=== PATIENT | male | born 1980 | race Caucasian/White ===

== ENCOUNTER 2019-06-15 14:11 | Emergency (ER) | payer SELFPAY ==
[2019-06-15] MEDS ORDERED: KETOROLAC TROMETHAMINE 30MG/ML ONE ×2 (14:49→17:31)
[2019-06-15] MEDS ORDERED: SODIUM CHLORIDE 0.9% 1000ML 1,000 ML IV ONE (14:50)
[2019-06-15 15:00] LABS: BASOPHILS % (AUTO) 0.4 % (0.0-5.0); EOSINOPHILS % (AUTO) 0.4 % (0.0-8.0); HEMATOCRIT 47.1 % (42-54); LYMPHOCYTES % (AUTO) 17.6 % (21.0-51.0); MEAN CORPUSCULAR HEMOGLOBIN 29.1 pg (27.0-33.0); MEAN CORPUSCULAR HGB CONC 33.5 g/dL (32.0-36.0); MEAN CORPUSCULAR VOLUME 86.7 fL (79-99); MONOCYTES % (AUTO) 13.2 % (3.0-13.0); NEUTROPHILS % (AUTO) 68.1 % (40.0-77.0); PLATELET COUNT (AUTO) 345 K/uL (130-400); RED BLOOD CELL COUNT(AUTO) 5.43 MIL/uL (4.50-6.20); RED CELL DISTRIBUTION WIDTH 13.4 % (11.0-15.5)
[2019-06-15 15:14] LABS: CREATININE 1.2 mg/dL (0.5-1.5); POTASSIUM 4.1 mmol/L (3.5-5.1)
[2019-06-15 15:21] LABS: ALBUMIN 4.6 g/dL (3.5-5.0); BILIRUBIN,TOTAL 1.3 mg/dL (0.2-1.0); CRP QUANTITATIVE 12.5 mg/L (0.00-9.0); TOTAL PROTEIN, SERUM 8.4 g/dL (6.0-8.3)
[2019-06-15 16:17] LABS: ERYTHROCYTE SEDIMENTATION RATE 2 MM/HR (0-15)
[2019-06-15 17:01] LABS: APPEARANCE,URINE Clear (CLEAR); BILIRUBIN,URINE Negative (NEGATIVE); COLOR,URINE Dark Yellow (YELLOW); GLUCOSE, URINE (UA) Negative (NEGATIVE); KETONES,URINE 40 mg/dL (NEGATIVE); LEUKOCYTE ESTERASE ,URINE Negative (NEGATIVE); NITRATE,URINE Negative (NEGATIVE); OCCULT BLOOD,URINE Trace (NEGATIVE); PROTEIN,URINE Trace mg/dL (NEGATIVE)
[2019-06-15 17:26] LABS: BACTERIA,URINE Few /HPF (None Seen); MUCUS,URINE Few LPF (None Seen)
[2019-06-15] MEDS ORDERED: DiphenhydrAMINE HCL 50 MG/ML VIAL ONE (17:37)
[2019-06-15] MEDS ORDERED: CEFTRIAXONE SODIUM 1 GM ONE (17:57)
[2019-06-15] MEDS ORDERED: LIDOCAINE HCL-MPF 1% 2ML VIAL ONE (17:57)
== END 2019-06-15 18:39 | disposition home or self-care (01) ==
LOC: EDH 14:11
DX: L40.50 Arthropathic psoriasis, unspecified (principal); N39.0 Urinary tract infection, site not specified; Z72.0 Tobacco use
CPT/HCPCS: 36415; 73630 ×2; 80053; 81001; 84145; 84550; 85025; 85651; 86140; 96372; 96374; 96375; 96376; 99285; J0696; J1200; J1885 ×2; J3490; J7030

== ENCOUNTER 2020-07-17 11:23 | Emergency (ER) | payer OTHER ==
[2020-07-17] MEDS ORDERED: KETOROLAC TROMETHAMINE 30MG/ML ONE (12:21)
== END 2020-07-17 13:43 | disposition home or self-care (01) ==
LOC: EDH 11:23 → EEVIPCON 11:23 → EDH 13:43
DX: M79.644 Pain in right finger(s) (principal)
CPT/HCPCS: 29130; 73130; 96372; 99283; J1885